=== PATIENT | male | born 1955 | race Caucasian/White ===

== ENCOUNTER 2022-12-28 18:11 | Emergency (ER) | payer BC ==
[~2022-12-28] VITALS: Ht 177.8 cm; Wt 83.9 kg
[2022-12-28 18:25] VITALS: BP 126/59; PULSE 64; RESP 18; TEMP 98.1; O2SAT 98
[2022-12-28] MEDS ORDERED: LIDOCAINE/EPI 2% 1:100000 20 ML VIAL INJ ONE (18:55)
--- NOTE | 2022-12-28 19:31 | NUR ---
RADIOLOGY AT BS PERFORMING BS X-RAY OF RFA. ENDORSED PT TO FIDELIA PIERCE. PT IN STABLE CONDITION.
--- NOTE | 2022-12-28 19:40 | NUR ---
PT RESTING ON BED. A/OX4. NOT IN DISTRESS. WITH COMPLAIN OF LACERATION AT RIGHT FOREARM
[2022-12-28] MEDS ORDERED: DOXY-690 PO (19:55)
--- NOTE | 2022-12-28 20:00 | NUR ---
WOUND CARE AND DRESSING DONE
[2022-12-28 20:06] VITALS: BP 120/70; PULSE 68; RESP 20; TEMP 98.5; O2SAT 97
--- NOTE | 2022-12-28 20:06 | NUR ---
Patient discharged with v/s stable. Written and verbal after care instructions given and explained. Patient alert, oriented and verbalized understanding of instructions. Ambulatory with steady gait. All questions addressed prior to discharge. ID band removed. Patient advised to follow up with PMD. Rx given TO PT. Patient educated on indication of medication including possible reaction and side effects. Opportunity to ask questions provided and answered.
== END 2022-12-28 20:06 | disposition home or self-care (01) ==
LOC: MED 18:11
DX: S51.811A Laceration without foreign body of right forearm, initial encounter (principal); V49.88XA Car occupant (driver) (passenger) injured in other specified transport accidents, initial encounter; Y93.89 Activity, other specified; Y92.89 Other specified places as the place of occurrence of the external cause; Y99.8 Other external cause status
CPT/HCPCS: 73090; 90471; 90715; 99283